=== PATIENT | female | born 1970 | race Caucasian/White ===

== ENCOUNTER 2020-09-13 16:21 | Emergency (ER) | payer OTHER, SELFPAY ==
[~2020-09-13] VITALS: Ht 152.4 cm; Wt 63.5 kg
[2020-09-13 16:31] VITALS: BP_SYST 116
--- NOTE | 2020-09-13 16:31 | NUR ---
Placed in room 08 . Placed on cardiac rehabilitation specialist, blood pressure machine and pulse oximeter. To gown for exam. Side rails up.
--- NOTE | 2020-09-13 16:32 | NUR ---
Came in ER this 50 year old female ambulatory from Home, [id number], breathing spontaneously at room air, not in distress noted. With chief complaints right upper quadrant abdominal pain since for 1 week, with CT Scan result last 09/07/2020 shows appedicitis, medically and surgically free. Safety measures in place and continue monitor, initial vital signs taken and recorded, stable
[2020-09-13] MEDS ORDERED: NACL 0.9% 2,000 ML IV ONE (16:45)
[2020-09-13] MEDS ORDERED: MORPHINE 4 MG/ML INJ. SYRINGE IVP ONE (16:45)
[2020-09-13] MEDS ORDERED: ONDANSETRON HCL 4 MG/2 ML VIAL IVP ONE (16:45)
[2020-09-13] MEDS ORDERED: NACL 0.9% 1,000 ML IV ONE (16:45)
[2020-09-13] MEDS ORDERED: PIPERACILLIN/TAZO 3.375 GM in NS 50 ML IV ONE (16:45)
--- NOTE | 2020-09-13 16:48 | NUR ---
# 20 gauge angiocath placed to left hand . Use of asceptic technique. Opsite placed over site. Blood return noted. Blood for lab drawn from site. Flushed with 10 cc of normal saline. No evidence of infiltration noted. Patient tolerated well.
[2020-09-13] MEDS ORDERED: PIPERACILLIN/TAZOBACTAM 3.375 GM/VIAL (ZOSYN) IV ONE (16:49)
--- NOTE | 2020-09-13 16:55 | NUR ---
Pt refused morphine and toradol at this time, states she wants something less strong
[2020-09-13 16:58] LABS: BILIRUBIN,URINE NEGATIVE (NEGATIVE); CLARITY/URINE CLEAR (CLEAR); COLOR,URINE YELLOW (YELLOW); GLUCOSE,URINE NEGATIVE (NEGATIVE); KETONES,URINE NEGATIVE (NEGATIVE); LEUKOCYTE ESTERASE ,URINE TRACE (NEGATIVE); NITRITE, URINE NEGATIVE (NEGATIVE); PROTEIN URINE NEGATIVE (NEGATIVE); UROBILINOGEN,URINE 0.2 (0.2-1.0)
[2020-09-13] MEDS ORDERED: KETOROLAC TROMETHAMINE 30 MG VIAL IVP ONE (17:00)
--- NOTE | 2020-09-13 17:02 | NUR ---
# 18 gauge angiocath placed to right antecubital vein. Use of asceptic technique. Opsite placed over site. Blood return noted. Blood for lab drawn from site. Flushed with 10 cc of normal saline. No evidence of infiltration noted. Patient tolerated well.
[2020-09-13 17:09] LABS: BLOOD, URINE TRACE (NEGATIVE)
[2020-09-13 17:15] LABS: BACTERIA,URINE FEW /HPF (None Seen); RBC,URINE 0-3 /HPF (0-3)
[2020-09-13 17:16] LABS: MUCUS,URINE None Seen /LPF (None Seen)
[2020-09-13 17:28] LABS: CALCIUM 9.1 mg/dL (8.4-11.0); CREATININE 0.79 mg/dL (0.55-1.30); POTASSIUM 3.8 mmol/L (3.5-5.1)
--- NOTE | 2020-09-13 17:29 | NUR ---
Back to Room from Ct scan department, CT Abdomen/pelvis with contrast done
[2020-09-13 17:34] LABS: ALBUMIN 3.8 g/dL (3.4-4.8); BASOPHILS # (AUTO) 0.1 K/uL (0.0-0.2); BASOPHILS % (AUTO) 0.9 % (0.0-2.0); EOSINOPHILS # (AUTO) 0.1 K/uL (0.0-0.4); EOSINOPHILS % (AUTO) 0.7 % (0.0-4.0); HEMATOCRIT 39.5 % (36-48); HEMOGLOBIN 13.2 g/dL (12.0-16.0); LYMPHOCYTES # (AUTO) 2.3 K/uL (1.0-5.5); LYMPHOCYTES % (AUTO) 30.8 % (20.5-51.5); MEAN CORPUSCULAR HEMOGLOBIN 35 pg (27-31); MEAN CORPUSCULAR HGB CONC 34 % (32-36); MEAN CORPUSCULAR VOLUME 103 fL (79.0-98.0); MONOCYTES # (AUTO) 0.5 K/uL (0.0-1.0); MONOCYTES % (AUTO) 6.8 % (1.7-9.3); NEUTROPHILS # (AUTO) 4.5 K/uL (1.8-7.7); NEUTROPHILS % (AUTO) 60.8 % (40.0-70.0); PLATELET COUNT (AUTO) 286 K/uL (130-430); RED BLOOD CELL COUNT(AUTO) 3.83 MIL/uL (4.2-6.2); RED CELL DISTRIBUTION WIDTH 16.9 % (9.0-15.0); TOTAL BILIRUBIN 0.3 mg/dL (0.0-1.0); WHITE BLOOD COUNT (AUTO) 7.4 K/uL (4.8-10.8)
--- NOTE | 2020-09-13 18:35 | NUR ---
CT Abdomen/Pelvis Scan result out, no appendicitis. Re-asessed by Dr. Gupta, for discharge
[2020-09-13] MEDS ORDERED: CEPH-568 PO (18:48)
--- NOTE | 2020-09-13 18:55 | NUR ---
Patient given written and verbal discharge instructions and verbalizes understanding. ER MD discussed with patient the results and treatment provided. Patient in stable condition. ID arm band removed. IV catheter removed intact and dressing applied, no active bleeding. Rx of given. Patient educated on pain management and to follow up with PMD. Pain Scale 3/10. Opportunity for questions provided and answered. Medication side effect fact sheet provided.
[2020-09-13 19:02] VITALS: BP_SYST 122
== END 2020-09-13 19:02 | disposition home or self-care (01) ==
LOC: SED 16:21
DX: N39.0 Urinary tract infection, site not specified (principal); Z20.822 Contact with and (suspected) exposure to COVID-19
CPT/HCPCS: 36415; 74177; 76376; 80053; 81000; 81025; 83605; 85025; 87040; 87086; 87426; 93005; 96361; 96365; 96375; 99285; J1885; J2270; J2405; J2543; J7030; Q9967